=== PATIENT | female | born 1955 | race African-American/Black ===

== ENCOUNTER 2023-05-13 16:01 | Emergency (ER) | payer MEDICARE, MEDICAID ==
[~2023-05-13] VITALS: Ht 165.1 cm; Wt 127.0 kg
[2023-05-13 16:10] VITALS: TEMP 98.6; O2SAT 96
[2023-05-13] MEDS: SODIUM CHLORIDE 0.9% 1,000 ML IV ONE (19:48)
[2023-05-13 19:56] LABS: BASOPHILS % 0.6 % (0.0-2.0); EOSINOPHILS % 1.6 % (0.0-5.0); HEMATOCRIT. 33.4 % (36.0-48.0); LYMPHOCYTES % 31.8 % (20.0-50.0); MEAN CORPUSCULAR HEMOGLOBIN 28.5 pg (28.0-32.0); MEAN CORPUSCULAR HGB CONC 32.8 g/dL (31.0-37.0); MEAN CORPUSCULAR VOLUME 86.9 fL (81.0-99.0); MEAN PLATELET VOLUME 9.9 fl (7.4-10.4); MONOCYTES % 10.8 % (2.0-8.0); NEUTROPHILS % 55.2 % (40.0-76.0); PLATELET 237 x1000/uL (130-400); RED BLOOD CELL COUNT 3.85 mill/uL (4.2-5.4); RED CELL DISTRIBUTION WIDTH 14.3 % (11.6-14.6); WHITE BLOOD COUNT 8.1 x1000/uL (4.5-11.0)
[2023-05-13 20:20] LABS: ALANINE AMINOTRANSFERASE 8 IU/L (10-49); ALBUMIN 3.8 g/dL (3.2-4.8); ASPARTATE AMINOTRANSFERASE 13 IU/L (<34); BILIRUBIN TOTAL 0.3 mg/dL (0.1-1.0); CALCIUM 9.2 mg/dL (8.7-10.4); CARBON DIOXIDE 29 mEq/L (21-32); CHLORIDE 107 mEq/L (98-107); CREATININE 0.7 mg/dL (0.6-1.0); GLUCOSE 131 mg/dL (70-105); POTASSIUM 4.2 mEq/L (3.5-5.1); PROTEIN TOTAL 7.6 g/dL (6.0-8.3); SODIUM 141 mEq/L (136-145); TROPONIN I HIGH SENSITIVITY 6 ng/L (3.0-34); UREA NITROGEN BLOOD 16 mg/dL (9-23)
[2023-05-13 20:41] LABS: PARTIAL THROMBOPLASTIN TIME 26.7 sec (23.4-31.0)
[2023-05-14 04:41] VITALS: BP 144/72; PULSE 88; RESP 16
== END 2023-05-14 11:07 | disposition home or self-care (01) ==
LOC: ER 16:01
DX: R53.1 Weakness (principal); E11.9 Type 2 diabetes mellitus without complications; R41.82 Altered mental status, unspecified
CPT/HCPCS: 99285; 96360; 70450; 71045; 96361; 80053; 83880; 85025; 85610; 85730; 84484; 36415; 93005; J7030